=== PATIENT | male | born 1980 | race Two or more races ===

== ENCOUNTER 2017-04-02 12:25 | Emergency (ER) | payer MEDICAID ==
[~2017-04-02] VITALS: Ht 177.8 cm; Wt 136.1 kg
[2017-04-02 13:28] LABS: Basophils # (auto) 0 uL; Basophils % (auto) 0.5 % (0.0-2.0); Eosinophils # (auto) 0.1 uL; Eosinophils % (auto) 1.9 % (0.0-7.0); Hematocrit 50.3 % (41.0-53.0); Hemoglobin 16.9 g/dL (13.5-17.5); Lymphocytes # (auto) 2.4 uL; Lymphocytes % (auto) 39.2 % (10.0-50.0); Mean Corpuscular Hemoglobin 30.4 pg (28.0-32.0); Mean Corpuscular Hgb Conc. 33.5 g/dL (32.0-36.0); Mean Corpuscular Volume 90.5 fL (80.0-100.0); Mean Platelet Volume 7.7 fL (6.9-10.8); Monocytes # (auto) 0.4 uL; Neutrophils # (auto) 3.1 uL; Neutrophils % (auto) 51.4 % (37.0-80.0); Nucleated Red Blood Cells % 0.1 %; Platelet Count (auto) 223 10^3/uL (140-450); Red Cell Distribution Width 13.1 % (11.8-14.3)
[2017-04-02 13:41] LABS: Albumin 3.8 g/dL (3.4-5.0); Alkaline Phosphatase 48 U/L (45-117); Anion Gap 5 (5-15); Aspartate Aminotransferase 13 U/L (15-37); BUN/Creatinine Ratio 14.8; Bilirubin, Total 0.5 mg/dL (0.2-1.0); Blood Urea Nitrogen 13 mg/dL (7-18); Calcium 8.5 mg/dL (8.5-10.1); Carbon Dioxide 30 mmol/L (21-32); Chloride 106 mmol/L (98-107); GFR African American 125 mL/min; GFR Non-African American 104 mL/min; Glucose 119 mg/dL (74-106); Potassium 4.3 mmol/L (3.5-5.1); Sodium 141 mmol/L (136-145); Total Protein 7.4 g/dL (6.4-8.2)
[2017-04-02 14:09] VITALS: BP 118/75
== END 2017-04-02 14:12 | disposition home or self-care (01) ==
LOC: ER 12:25
DX: R07.89 Other chest pain (principal)
CPT/HCPCS: 36415; 71020; 80053; 84484; 85025; 93005

== ENCOUNTER 2017-06-30 14:36 | Emergency (ER) | payer MEDICAID ==
[~2017-06-30] VITALS: Ht 177.8 cm; Wt 131.5 kg
[2017-06-30] MEDS ORDERED: ACETAMINOPHEN 500 MG TAB PO ONE ×2 (14:46→15:00)
[2017-06-30 14:50] VITALS: BP 125/81
== END 2017-06-30 17:07 | disposition home or self-care (01) ==
LOC: ER 14:36
DX: H66.91 Otitis media, unspecified, right ear (principal); M10.9 Gout, unspecified; J02.9 Acute pharyngitis, unspecified